=== PATIENT | male | born 1970 | race Caucasian/White ===

== ENCOUNTER → 2025-05-07 19:22 | Outpatient (REF) | payer OTHER, SELFPAY | LOC: MRI 3T 19:22 | PROVIDERS: ATTENDING PHYSICIAN Specialist; FAMILY PHYSICIAN Physician Assistant Medical | DX: G40.209 Localization-related (focal) (partial) symptomatic epilepsy and epileptic syndromes with complex partial seizures, not intractable, without status epilepticus (principal) | CPT/HCPCS: 70553; A9575 ==

== ENCOUNTER → 2025-09-24 13:37 | Outpatient (REF) | payer OTHER, SELFPAY | LOC: DHVS 13:37 | PROVIDERS: ATTENDING PHYSICIAN Student in an Organized Health Care Education/Training Program; FAMILY PHYSICIAN Physician Assistant Medical | DX: I73.9 Peripheral vascular disease, unspecified (principal) | CPT/HCPCS: 93922; 93925 ==